=== PATIENT | male | born 1930 | race Caucasian/White ===

== ENCOUNTER 2017-10-12 16:18 | Emergency (ER) | payer MEDICARE, BC ==
--- NOTE | 2017-10-12 17:09 | RAD ---
INDICATION: Intracranial injury COMPARISON: CT brain August 29, 2016 TECHNIQUE: Noncontrast axial source images were acquired from the skull base to the vertex. FINDINGS: Ventricles/sulci: The ventricles and cisterns are normal in size and configuration for age. Brain parenchyma: There is no focal parenchymal finding, evidence of intracranial mass, or intracranial mass effect. Intracranial hemorrhage:None. Extra-axial spaces: There are no abnormal extra axial fluid collections or evidence of extra-axial mass. Calvarium: There is no calvarial fracture or other calvarial abnormality. Scalp: There is no evidence of scalp or extracalvarial soft tissue abnormality. Paranasal sinuses/mastoid: The paranasal sinuses and mastoid air cells are clear. Other: None. IMPRESSION: No acute intrarenal findings
[2017-10-12 17:26] VITALS: BP 126/78
--- NOTE | 2017-10-14 13:50 | ED ---
Ok Du Stephanie, scribed for Jaren Tobias MD on 10/12/17 at 1713 . Head Injury - HPI Summary HPI Summary: 1B: Dioni sanabria The pt is an 87 y/o M presenting to the ED with c/o a laceration on the back of his head s/p fall that occurred at 00:00 today. Pt reports that he is on Coumadin. The pt denies neck pain, WOODS, dizziness, and LOC. - History Of Current Complaint Chief Complaint: EDHeadInjury Stated Complaint: HEAD INJURY Time Seen by Provider: 10/12/17 17:04 Hx Obtained From: Patient, Family/Bulb Brander - Mechanism Of Injury: Fall From Height Of: - from sitting position on chair Onset/Duration: Started Hours Ago, Still Present Severity Currently: None Pain Intensity: 0 Pain Scale Used: 0-10 Numeric Location of Head Injury: Occipital - Allergies/Home Medications Allergies/Adverse Reactions: Allergies Allergy/AdvReac Type Severity Reaction Status Date / Time Penicillins Allergy Unknown Unknown Verified 08/29/16 13:12 Reaction Details Abciximab [From ReoPro] Allergy Unknown Verified 08/29/16 13:12 Reaction Details PMH/Surg Hx/FS Hx/Imm Hx Endocrine/Hematology History: Reports: Hx Anticoagulant Therapy - currently, Hx Diabetes, Other Endocrine/Hematological Disorders - Hx of blood clot in the groin Cardiovascular History: Reports: Hx Coronary Artery Disease, Hx Hypercholesterolemia, Hx Hypertension Denies: Hx Pacemaker/ICD Respiratory History: Denies: Hx Asthma, Hx Bronchopulmonary Dysplasia, Hx Chronic Bronchitis, Hx Chronic Obstructive Pulmonary Disease (COPD), Hx Cystic Fibrosis, Hx Lung Cancer , Hx Pleural Effusion, Hx Pneumonia, Hx Pulmonary Edema, Hx Pulmonary Embolism, Hx Seasonal Allergies, Hx Sleep Apnea, Other Respiratory Problems/Disorders GI History: Denies: Hx Cirrhosis, Hx Crohn's Disease, Hx Diverticulosis, Hx Gall Bladder Disease, Hx Gastroesophageal Reflux Disease, Hx Gastrointestinal Bleed, Hx Hiatal Hernia, Hx Irritable Bowel, Hx Jaundice, Hx Obstructive Bowel, Hx Ileostomy, Hx Pyloric Stenosis, Hx Ulcer, Hx Urosepsis, Other GI Disorders History: Reports: Other Problems/Disorders - prostate cancer Musculoskeletal History: Reports: Hx Arthritis - back Sensory History: Reports: Hx Contacts or Glasses, Hx Hearing Problem Denies: Hx Hearing Aid Opthamlomology History: Reports: Hx Contacts or Glasses Psychiatric History: Denies: Hx Panic Disorder - Cancer History Cancer Type, Location and Year: PROSTATE CANCER 20-25 YRS AGO Hx Radiation Therapy: Yes - radiation seed - Surgical History Surgery Procedure, Year, and Place: polypectomy of rectum, transurethal balloon dilation of prostatic urethra, left heart cath, angioplasty, triple bypass Hx Anesthesia Reactions: No Infectious Disease History: No Infectious Disease History: Reports: Hx Shingles - "possible" diagnosis per pt Denies: History Other Infectious Disease, Traveled Outside the [place] in Last 30 Days - Family History Known Family History: Positive: Other - NONCONTIRBUTORY Family History: No FHx of CVA. FHx of RA - Sister. FHx of CA - Father - Social History Occupation: Retired Lives: With Family Alcohol Use: None Substance Use Type: Reports: None Hx Tobacco Use: No Smoking Status (MU): Never Smoked Tobacco Have You Smoked in the Last Year: No Review of Systems Positive: Other - Negative: neck pain, dizziness, LOC. Negative: Fever, Chills Negative: Erythema Negative: Sore Throat Negative: Chest Pain Negative: Shortness Of Breath, Cough Negative: Abdominal Pain, Vomiting, Nausea Negative: dysuria, hematuria Negative: Myalgia, Edema Negative: Rash Positive: Headache All Other Systems Reviewed And Are Negative: Yes Physical Exam - Summary Physical Exam Summary: Constitutional: Well-developed, Well-nourished, Alert. (-) Distressed Skin: Warm, Dry HENT: 1 cm occipital scalp hematoma. no palpable tenderness or depression Eyes: Conjunctiva normal Neck: Musculoskeletal ROM normal neck. (-) JVD, (-) Stridor, (-) Tracheal deviation Cardio: Rhythm regular, rate normal, Heart sounds normal; Intact distal pulses; The pedal pulses are 2+ and symmetric. Radial pulses are 2+ and symmetric. (-) Murmur Pulmonary/Chest wall: Effort normal. (-) Respiratory distress, (-) Wheezes, (-) Rales Abd: Soft, (-) Tenderness, (-) Distension, (-) Guarding, (-) Rebound Musculoskeletal: (-) Edema Lymph: (-) Cervical adenopathy Neuro: Alert, Oriented x3 Psych: Mood and affect Normal Triage Information Reviewed: Yes Vital Signs On Initial Exam: Initial Vitals Temp Pulse Resp BP Pulse Ox 97.9 F 109 18 148/84 100 10/12/17 16:33 10/12/17 16:33 10/12/17 16:33 10/12/17 16:33 10/12/17 16:33 Vital Signs Reviewed: Yes Diagnostics - Vital Signs Vital Signs Temp Pulse Resp BP Pulse Ox 10/12/17 16:33 97.9 F 109 18 148/84 100 - Laboratory Lab Statement: Any lab studies that have been ordered have been reviewed, and results considered in the medical decision making process. - CT Brain CT Interpretation: No Acute Changes CT Interpretation Completed By: Radiologist - No acute intrarenal findings Head Injury Course/Dx Course Of Treatment: Pt was observed in ED for over 1 hr. He had no decline in neurologic status. - Diagnoses Provider Diagnoses: occipital scalp hematoma, Head trauma Discharge - Discharge Plan Condition: Stable Disposition: HOME Referrals: Frank Reynoso MD [Primary Care Provider] - Additional Instructions: Follow up with primary care physician in 2 days. RETURN TO THE EMERGENCY DEPARTMENT FOR CHANGING OR WORSENING SYMPTOMS The documentation as recorded by the Ok jimenez Stephanie accurately reflects the service I personally performed and the decisions made by Jatinder preston Jerry, MD.
== END 2017-10-12 17:25 | disposition home or self-care (01) ==
LOC: ED 16:18
DX: S00.03XA Contusion of scalp, initial encounter (principal); S09.90XA Unspecified injury of head, initial encounter; R51 Headache; W19.XXXA Unspecified fall, initial encounter; Y92.9 Unspecified place or not applicable; Z79.01 Long term (current) use of anticoagulants
CPT/HCPCS: 70450; 99282

== ENCOUNTER 2017-11-02 18:08 | Inpatient (IN) | payer MEDICARE, BC ==
--- NOTE | 2017-11-02 20:30 | RAD ---
INDICATION: Shortness of breath. COMPARISON: Comparison is made with prior study from August 16, 2014. Correlation is also made with a prior study from October 12, 2013. TECHNIQUE: Dual-energy PA and lateral views of the chest were obtained. FINDINGS: The patient appears to be status post coronary artery bypass surgery. The heart is within normal limits in size. There is elevation of the left hemidiaphragm which is unchanged. There is flattening of the diaphragms suggestive of chronic obstructive pulmonary disease. The lungs are grossly clear. There is blunting of the left costophrenic angle most consistent with a small pleural effusion. IMPRESSION: SMALL LEFT PLEURAL EFFUSION.
[2017-11-02] MEDS ORDERED: cefTRIAXone(*) 1 GM in NS 0.9% 50 ML* 50 ML IVPB ONE (20:50)
[2017-11-02] MEDS ORDERED: methylPREDNISolone 125 MG* 2 ML VIAL IV ONE (20:50)
[2017-11-02] MEDS ORDERED: Azithromycin TAB* 250 MG PO ONE (20:50)
[2017-11-02] MEDS ORDERED: Albuterol/Ipratropium NEB.SOL* Albuterol 2.5 MG/Ipratropium 0.5 MG 3 ML INH ONE (20:50)
[2017-11-02] MEDS ORDERED: Lidocaine 2% VISCOUS* 15 ML UDC PO ONE (20:50)
[2017-11-02] MEDS ORDERED: Al Hydrox/Mg Hydrox/Simet LIQ* 30 ML UDC PO ONE (20:50)
[2017-11-02 20:59] LABS: ABS Basophils 0 10^3/ul (0-0.2); ABS Eosinophils 0.3 10^3/ul (0-0.6); ABS Monocytes 0.9 10^3/ul (0-0.8); ABS Neutrophils 6.3 10^3/ul (1.5-7.7); ABS Nucleated RBC 0 10^3/ul; Eosinophil % 3.4 % (0-6); Hematocrit 39 % (42-52); Hemoglobin 12.5 g/dl (14.0-18.0); Lymphocyte % 11.9 % (25-47); Mean Corpuscular HGB Conc 32 g/dl (31-36); Mean Corpuscular Hemoglobin 31 pg (27-31); Mean Corpuscular Volume 97 fL (80-94); Mean Platelet Volume 8 um3 (7.4-10.4); Nucleated Red Blood Cells % 0.1; Platelet Count 143 10^3/ul (150-450); Red Blood Count 4.01 10^6/ul (4.0-5.4); Red Cell Distribution Width 16 % (10.5-15); White Blood Count 8.6 10^3/ul (3.5-10.8)
[2017-11-02 21:25] LABS: INR 2.81 (0.77-1.02)
[2017-11-02 21:35] LABS: EGFR Non-African American 40.3 (>60)
[2017-11-02] MEDS ORDERED: Acetaminophen TAB* 325 MG PO ONE (22:16)
[2017-11-02] MEDS ORDERED: Omeprazole CAP* 20 MG PO ONE (23:27)
[2017-11-03] MEDS ORDERED: Docusate CAP* 100 MG PO PRN (00:18)
[2017-11-03] MEDS ORDERED: Al Hydrox/Mg Hydrox/Simet LIQ* 30 ML UDC PO PRN (00:18)
[2017-11-03] MEDS ORDERED: Senna TAB PO PRN (00:18)
[2017-11-03] MEDS ORDERED: Ondansetron INJ* 2 MG/ML VIAL IV PRN (00:18)
[2017-11-03] MEDS ORDERED: Albuterol/Ipratropium NEB.SOL* Albuterol 2.5 MG/Ipratropium 0.5 MG 3 ML INH PRN (00:21)
[2017-11-03] MEDS ORDERED: Furosemide IV* 10 MG/ML 10 ML VIAL (100 MG) IV ONE (00:21)
[2017-11-03] MEDS ORDERED: Albuterol 2.5 MG/3 ML NEB.SOL* (0.083%) INH PRN (00:22)
[2017-11-03] MEDS ORDERED: HYDROcodone/ACETAMIN 5-325 MG* 1 TAB PO PRN (00:23)
[2017-11-03] MEDS ORDERED: Dextrose 50% Syringe 50 ML* 25 GM/50 ML SYRINGE IV PUSH PRN (00:25)
--- NOTE | 2017-11-03 02:55 | HP ---
CC: Frank Reynoso MD * HISTORY AND PHYSICAL: DATE OF ADMISSION: 11/03/17 TIME OF EVALUATION: 0000. PRIMARY CARE PHYSICIAN: Frank Reynoso MD. CHIEF COMPLAINT: Shortness of breath. HISTORY OF PRESENT ILLNESS: This is an 87-year-old male with a past medical history of reactive airway disease, coronary artery disease, who presents to the emergency room with worsening shortness of breath. The patient states yesterday around noon, he began developing runny nose with a nonstop dry cough. His coughing persisted and now today he has become more shortness of breath, worse with exertion. He called his primary care physician today. They called him a script for Tamiflu, but they were not able to see him. Because of the worsening shortness of breath, he came to the emergency room for further evaluation. When he got here, he had some pleuritic pain and full body aching. No orthopnea. No nausea, vomiting. No abdominal pain. No diarrhea. No fever. His had a viral illness about a week ago. He has an albuterol inhaler that he was prescribed a year ago after he had a virus. He did use that and showed some improvement in his coughing. He denies any lower extremity swelling. He has had gained about 10 pounds since August. He has never had a history of congestive heart failure. Otherwise, reaming review of systems is negative. We did a road test. He did not become hypoxic. He became very tachycardiac and tachypneic with increased work of breathing. Decision was made to bring him in for further evaluation and observation. In the emergency room, he was given 650 mg of Tylenol, DuoNeb, Zithromax, ceftriaxone, Solu-Medrol 125 and Prilosec and was referred to the hospitalist service for further evaluation. PAST MEDICAL HISTORY: 1. Macular degeneration. 2. History of DVT with hypercoagulable history, on long-term anticoagulation. 3. CKD stage 3. 4. CAD status post bypass and PCI. 5. Chronic back pain. 6. Spinal stenosis. 7. History of reactive airway disease. 8. Diabetes. 9. Hyperlipidemia. 10. History of nephrolithiasis. 11. Hypertension. 12. History of prostate cancer status post TURP. 13. History of colon polyp. 14. GERD. MEDICATIONS: 1. Albuterol inhaler 2 puffs every 4 hours as needed for wheezing. 2. Allopurinol 300 mg p.o. daily. 3. Atorvastatin 40 mg p.o. daily. 4. Citalopram 10 mg p.o. daily. 5. Lasix 20 mg p.o. every other day. 6. Glipizide 5 mg p.o. daily. 7. [place] 1 tab every 4 hours as needed for pain. 8. Metoprolol succinate 50 mg p.o. daily. 9. Nitroglycerin sublingual as directed. 10. Ramipril 10 mg p.o. b.i.d. 11. Ranitidine 300 mg p.o. at bedtime. 12. Coumadin 2.5 mg Wednesday, Wednesday, , Wednesday and 5 mg Wednesday, Wednesday, Wednesday. ALLERGIES: PENICILLIN, REPRO. FAMILY HISTORY: Reviewed and noncontributory. SOCIAL HISTORY: The patient lives at home with his who is his healthcare proxy. He is independent of ADLs and still driving. No history of smoking, alcohol, or illicit drug use. He likes to buy cars. CODE STATUS: Discussed this with him and he would like to be a DNR/DNI and MOLST form will be completed. REVIEW OF SYSTEMS: A 14-point review of systems as mentioned in the HPI, otherwise negative. PHYSICAL EXAMINATION GENERAL: No acute distress, resting comfortably with his at the bedside. VITAL SIGNS: Temp 98.5, pulse rate 102, respiratory rate 26, oxygen saturation 96% on room air, and blood pressure 120/60. HEENT: Head: Normocephalic. Pupils are equal and reactive. Oropharynx: Mucous membranes moist and posterior erythema in the oropharynx. NECK: Supple. No nuchal rigidity or adenopathy. RESPIRATORY: Rhonchorous bilateral breath sounds with bilateral crackles at the bases and expiratory wheezing. CARDIAC: Tachycardiac. Soft systolic murmur heard throughout. ABDOMEN: Soft, nontender, nondistended. EXTREMITIES: Trace pretibial edema. +1 DPs. NEUROLOGIC: Alert, awake, and oriented x3. No focal neurologic deficits. He was noted to have resting tremor. LABORATORY DATA: White count 8.6, hemoglobin 12.5, hematocrit 39, platelets 143. INR was 2.81. Sodium 139, potassium 4.4, chloride 106, bicarb 26, BUN 37, creatinine 1.62, glucose 116. Troponin 0.03. BNP is 607. Influenza is negative. RADIOGRAPHIC DATA: Chest x-ray: Small left pleural effusion. EKG shows normal sinus rhythm with PVCs. ASSESSMENT: This is an 87-year-old male with a past medical history of reactive airway disease and coronary artery disease, presents to the emergency room with acute onset on worsening shortness of breath and dyspnea on exertion. 1. Shortness of breath, dyspnea on exertion. Assessment: History and physical are most consistent with a viral syndrome and exacerbation of his reactive airway disease. He also has an elevated BNP and has crackles on exam and could have a component of some mild congestive heart failure. He had an echocardiogram done several years ago that showed an ejection fraction of 40% to 45% with diagnostic dysfunction. Plan: We will admit him for observation. We will give him the dose of Lasix 40 mg IV now. We will hold off on further antibiotics as this appears viral in nature. We will check a procalcitonin to confirm this. Continue breathing treatments with DuoNeb and albuterol. We will also continue him on prednisone at 40 and resume his remaining home medications as prescribed. 2. Chronic medical problems: Diabetes. We will hold his oral agents and start him on lispro sliding scale. 3. Gastroesophageal reflux disease. We do not have ranitidine on the formulary , we will place him on omeprazole. 4. DVT. Continue him on Coumadin. He is therapeutic. He scores high risk 5. Coronary artery disease, hypertension. Continue his cardiac medications. He may need additional Lasix depending on his response. 6. FEN. Place him on heart healthy low-sodium diet. 8. Code status. The patient confirms he is a DNR/DNI. We will fill out the MOLST form. PATIENT TIME: Greater than 60 minutes spent doing the history and physical, more than half the time spent in direct patient contact. [id number]/[facility] #: [id number] PILAR
--- NOTE | 2017-11-03 04:41 | ED ---
Lilia Du Thomas, scribed for Marc Colbert on 11/02/17 at 205 . Shortness of Breath - HPI Summary HPI Summary: The patient is an 87 year old male presenting to the emergency department complaining of shortness of breath and a cough for the last day. The patient denies edema and fever. - History of Current Complaint Chief Complaint: EDShortnessOfBreath Time Seen by Provider: 11/02/17 20:39 Hx Obtained From: Patient Onset/Duration: Lasting Days - 1, Still Present Timing: Constant Current Severity: Moderate Dyspnea At: Rest Aggrevating Factors: Other - Exertion Alleviating Factors: Nothing Associated Signs & Symptoms: Cough (Nonproductive) - Allergy/Home Medications Allergies/Adverse Reactions: Allergies Allergy/AdvReac Type Severity Reaction Status Date / Time MS Penicillins [Penicillins] Allergy Unknown Unknown Verified 08/29/16 13:12 Reaction Details MS Abciximab [From ReoPro] Allergy Unknown Verified 08/29/16 13:12 Reaction Details Home Medications: Home Medications Albuterol HFA INHALER* [Ventolin HFA Inhaler*] 2 puff INH Q4H PRN 11/02/17 [ History Confirmed 11/02/17] Allopurinol TAB* [Zyloprim 300 MG TAB*] 300 mg PO DAILY 11/02/17 [History Confirmed 11/02/17] Aspirin EC Low Dose* [Ecotrin EC Low Dose 81 MG*] 81 mg PO DAILY 11/02/17 [ History Confirmed 11/02/17] Atorvastatin* [Lipitor*] 40 mg PO DAILY 11/02/17 [History Confirmed 11/02/17] Citalopram TAB* [CeleXA TAB*] 10 mg PO DAILY 11/02/17 [History Confirmed ] Furosemide TAB* [Lasix TAB*] 20 mg PO EVERY OTHER DAY 11/02/17 [History Confirmed 11/02/17] HYDROcodone/ACETAMIN 5-325 MG* [[place] 5-325 TAB*] 1 tab PO Q4H PRN MDD 4 tablets 11/02/17 [History Confirmed 11/02/17] Metoprolol Succinate XL TAB* [Toprol XL TAB*] 50 mg PO DAILY 11/02/17 [History Confirmed 11/02/17] Nitroglycerin TAB 0.4 MG* 0.4 mg SL Q5M PRN 11/02/17 [History Confirmed 11/02/17 ] Ramipril CAP* [Altace CAP*] 10 mg PO BID 11/02/17 [History Confirmed 11/02/17] Ranitidine TAB (NF) [Zantac TAB (NF)] 300 mg PO BEDTIME 11/02/17 [History Confirmed 11/02/17] Warfarin TAB(*) [Coumadin TAB(*)] 2.5 mg PO SUTUTHSA 11/02/17 [History Confirmed 11/02/17] Warfarin TAB(*) [Coumadin TAB(*)] 5 mg PO MOWEFR 11/02/17 [History Confirmed ] glipiZIDE TAB.XL* [Glucotrol XL*] 5 mg PO DAILY 11/02/17 [History Confirmed ] PMH/Surg Hx/FS Hx/Imm Hx Endocrine/Hematology History: Reports: Hx Anticoagulant Therapy - currently, Hx Diabetes, Other Endocrine/Hematological Disorders - Hx of blood clot in the groin Cardiovascular History: Reports: Hx Coronary Artery Disease, Hx Hypercholesterolemia, Hx Hypertension Denies: Hx Pacemaker/ICD Respiratory History: Denies: Hx Asthma, Hx Bronchopulmonary Dysplasia, Hx Chronic Bronchitis, Hx Chronic Obstructive Pulmonary Disease (COPD), Hx Cystic Fibrosis, Hx Lung Cancer , Hx Pleural Effusion, Hx Pneumonia, Hx Pulmonary Edema, Hx Pulmonary Embolism, Hx Seasonal Allergies, Hx Sleep Apnea, Other Respiratory Problems/Disorders GI History: Denies: Hx Cirrhosis, Hx Crohn's Disease, Hx Diverticulosis, Hx Gall Bladder Disease, Hx Gastroesophageal Reflux Disease, Hx Gastrointestinal Bleed, Hx Hiatal Hernia, Hx Irritable Bowel, Hx Jaundice, Hx Obstructive Bowel, Hx Ileostomy, Hx Pyloric Stenosis, Hx Ulcer, Hx Urosepsis, Other GI Disorders History: Reports: Other Problems/Disorders - prostate cancer Musculoskeletal History: Reports: Hx Arthritis - back Sensory History: Reports: Hx Contacts or Glasses, Hx Hearing Problem Denies: Hx Hearing Aid Opthamlomology History: Reports: Hx Contacts or Glasses Psychiatric History: Denies: Hx Panic Disorder - Cancer History Cancer Type, Location and Year: PROSTATE CANCER 20-25 YRS AGO Hx Radiation Therapy: Yes - radiation seed - Surgical History Surgery Procedure, Year, and Place: polypectomy of rectum, transurethal balloon dilation of prostatic urethra, left heart cath, angioplasty, triple bypass Hx Anesthesia Reactions: No - Immunization History Date of Tetanus Vaccine: UTD Date of Influenza Vaccine: UTD Infectious Disease History: No Infectious Disease History: Reports: Hx Shingles - "possible" diagnosis per pt Denies: History Other Infectious Disease, Traveled Outside the [place] in Last 30 Days - Family History Known Family History: Positive: Other - NONCONTIRBUTORY Family History: No FHx of CVA. FHx of RA - Sister. FHx of CA - Father - Social History Alcohol Use: None Substance Use Type: Reports: None Hx Tobacco Use: No Smoking Status (MU): Never Smoked Tobacco Have You Smoked in the Last Year: No Review of Systems Negative: Fever Positive: Shortness Of Breath, Cough Negative: Edema All Other Systems Reviewed And Are Negative: Yes Physical Exam - Summary Physical Exam Summary: Appearance: Well appearing, no pain distress Skin: warm, dry, reflects adequate perfusion Head/face: normal Eyes: EOMI, ELIZA ENT: normal Neck: supple, non-tender Respiratory: He has a wheeze on the right side. Cardiovascular: RRR, pulses symmetrical Abdomen: non-tender, soft Bowel: present Musculoskeletal: normal, strength/ROM intact Neuro: normal, sensory motor intact, A&Ox3 Triage Information Reviewed: Yes Vital Signs On Initial Exam: Initial Vitals Temp Pulse Resp BP Pulse Ox 98.5 F 83 26 166/98 96 11/02/17 18:11 11/02/17 18:11 11/02/17 18:11 11/02/17 18:11 11/02/17 18:11 Vital Signs Reviewed: Yes Diagnostics - Vital Signs Vital Signs Temp Pulse Resp BP Pulse Ox 11/02/17 19:21 98.8 F 73 24 132/55 96 11/02/17 18:11 98.5 F 83 26 166/98 96 - Laboratory Lab Results: Lab Results 11/02/17 11/02/17 11/02/17 Range/Units 20:49 20:49 20:49 WBC 8.6 (3.5-10.8) 10^3/ul RBC 4.01 (4.0-5.4) 10^6/ul Hgb 12.5 L (14.0-18.0) g/dl Hct 39 L (42-52) % MCV 97 H (80-94) fL MCH 31 (27-31) pg MCHC 32 (31-36) g/dl RDW 16 H (10.5-15) % Plt Count 143 L (150-450) 10^3/ul MPV 8 (7.4-10.4) um3 Neut % (Auto) 73.6 (38-83) % Lymph % (Auto) 11.9 L (25-47) % [place] % (Auto) 10.7 H (1-9) % Eos % (Auto) 3.4 (0-6) % Baso % (Auto) 0.4 (0-2) % Absolute Neuts (auto) 6.3 (1.5-7.7) 10^3/ul Absolute Lymphs (auto) 1.0 (1.0-4.8) 10^3/ul Absolute Monos (auto) 0.9 H (0-0.8) 10^3/ul Absolute Eos (auto) 0.3 (0-0.6) 10^3/ul Absolute Basos (auto) 0 (0-0.2) 10^3/ul Absolute Nucleated RBC 0 10^3/ul Nucleated RBC % 0.1 INR (Anticoag Therapy) (0.77-1.02) APTT (26.0-36.3) seconds Sodium 139 (133-145) mmol/L Potassium 4.4 (3.5-5.0) mmol/L Chloride 106 (101-111) mmol/L Carbon Dioxide 26 (22-32) mmol/L Anion Gap 7 (2-11) mmol/L BUN 37 H (6-24) mg/dL Creatinine 1.62 H (0.67-1.17) mg/dL Est GFR ( Amer) 51.9 (>60) Est GFR (Non-Af Amer) 40.3 (>60) BUN/Creatinine Ratio 22.8 H (8-20) Glucose 116 H (70-100) mg/dL Lactic Acid 1.0 (0.5-2.0) mmol/L Calcium 9.2 (8.6-10.3) mg/dL Total Bilirubin 0.60 (0.2-1.0) mg/dL AST 24 (13-39) U/L ALT 17 (7-52) U/L Alkaline Phosphatase 116 H (34-104) U/L Troponin I 0.03 (<0.04) ng/mL B-Natriuretic Peptide ( - 100) pg/mL Total Protein 7.0 (6.4-8.9) g/dL Albumin 3.8 (3.2-5.2) g/dL Globulin 3.2 (2-4) g/dL Albumin/Globulin Ratio 1.2 (1-3) Procalcitonin (<0.6) ng/mL Influenza A (Rapid) (Negative) Influenza B (Rapid) (Negative) 11/02/17 11/02/17 11/02/17 Range/Units 20:49 20:49 20:49 WBC (3.5-10.8) 10^3/ul RBC (4.0-5.4) 10^6/ul Hgb (14.0-18.0) g/dl Hct (42-52) % MCV (80-94) fL MCH (27-31) pg MCHC (31-36) g/dl RDW (10.5-15) % Plt Count (150-450) 10^3/ul MPV (7.4-10.4) um3 Neut % (Auto) (38-83) % Lymph % (Auto) (25-47) % [place] % (Auto) (1-9) % Eos % (Auto) (0-6) % Baso % (Auto) (0-2) % Absolute Neuts (auto) (1.5-7.7) 10^3/ul Absolute Lymphs (auto) (1.0-4.8) 10^3/ul Absolute Monos (auto) (0-0.8) 10^3/ul Absolute Eos (auto) (0-0.6) 10^3/ul Absolute Basos (auto) (0-0.2) 10^3/ul Absolute Nucleated RBC 10^3/ul Nucleated RBC % INR (Anticoag Therapy) 2.81 H (0.77-1.02) APTT 43.3 H (26.0-36.3) seconds Sodium (133-145) mmol/L Potassium (3.5-5.0) mmol/L Chloride (101-111) mmol/L Carbon Dioxide (22-32) mmol/L Anion Gap (2-11) mmol/L BUN (6-24) mg/dL Creatinine (0.67-1.17) mg/dL Est GFR ( Amer) (>60) Est GFR (Non-Af Amer) (>60) BUN/Creatinine Ratio (8-20) Glucose (70-100) mg/dL Lactic Acid (0.5-2.0) mmol/L Calcium (8.6-10.3) mg/dL Total Bilirubin (0.2-1.0) mg/dL AST (13-39) U/L ALT (7-52) U/L Alkaline Phosphatase (34-104) U/L Troponin I (<0.04) ng/mL B-Natriuretic Peptide 607 H ( - 100) pg/mL Total Protein (6.4-8.9) g/dL Albumin (3.2-5.2) g/dL Globulin (2-4) g/dL Albumin/Globulin Ratio (1-3) Procalcitonin < 0.1 (<0.6) ng/mL Influenza A (Rapid) (Negative) Influenza B (Rapid) (Negative) 11/02/17 Range/Units 22:46 WBC (3.5-10.8) 10^3/ul RBC (4.0-5.4) 10^6/ul Hgb (14.0-18.0) g/dl Hct (42-52) % MCV (80-94) fL MCH (27-31) pg MCHC (31-36) g/dl RDW (10.5-15) % Plt Count (150-450) 10^3/ul MPV (7.4-10.4) um3 Neut % (Auto) (38-83) % Lymph % (Auto) (25-47) % [place] % (Auto) (1-9) % Eos % (Auto) (0-6) % Baso % (Auto) (0-2) % Absolute Neuts (auto) (1.5-7.7) 10^3/ul Absolute Lymphs (auto) (1.0-4.8) 10^3/ul Absolute Monos (auto) (0-0.8) 10^3/ul Absolute Eos (auto) (0-0.6) 10^3/ul Absolute Basos (auto) (0-0.2) 10^3/ul Absolute Nucleated RBC 10^3/ul Nucleated RBC % INR (Anticoag Therapy) (0.77-1.02) APTT (26.0-36.3) seconds Sodium (133-145) mmol/L Potassium (3.5-5.0) mmol/L Chloride (101-111) mmol/L Carbon Dioxide (22-32) mmol/L Anion Gap (2-11) mmol/L BUN (6-24) mg/dL Creatinine (0.67-1.17) mg/dL Est GFR ( Amer) (>60) Est GFR (Non-Af Amer) (>60) BUN/Creatinine Ratio (8-20) Glucose (70-100) mg/dL Lactic Acid (0.5-2.0) mmol/L Calcium (8.6-10.3) mg/dL Total Bilirubin (0.2-1.0) mg/dL AST (13-39) U/L ALT (7-52) U/L Alkaline Phosphatase (34-104) U/L Troponin I (<0.04) ng/mL B-Natriuretic Peptide ( - 100) pg/mL Total Protein (6.4-8.9) g/dL Albumin (3.2-5.2) g/dL Globulin (2-4) g/dL Albumin/Globulin Ratio (1-3) Procalcitonin (<0.6) ng/mL Influenza A (Rapid) Negative (Negative) Influenza B (Rapid) Negative (Negative) Result Diagrams: 11/02/17 20:49 11/02/17 20:49 Lab Statement: Any lab studies that have been ordered have been reviewed, and results considered in the medical decision making process. - Radiology CXR Xray Interpretation: Positive (See Comments) - Small left pleural effusion. Dr. Colbert has reviewed this report. Radiology Interpretation Completed By: Radiologist - EKG 20:08 Cardiac Rate: NL EKG Rhythm: Sinus Rhythm - at 74 BPM EKG Interpretation: Multiple PVCs Re-Evaluation - Re-Evaluation First Eval Re-Evaluation Time: 22:39 Change: Unchanged Comment: The patient is still short of breath. Course/Dx - Course Assessment/Plan: The patient is an 87 year old male presenting to the emergency department complaining of shortness of breath and a cough for the last day. Bloodwork was obtained. CXR shows small left pleural effusion. EKG shows sinus rhythm with multiple PVCs. The patient is diagnosed with COPD exacerbation and pneumonia. Dr. Key admits the patient. - Diagnoses Differential Diagnosis/HQI/PQRI: Positive: Bronchitis, CHF, COPD Exacerbation, Pneumonia, Pulmonary Edema Provider Diagnoses: COPD exacerbation, Pneumonia - Physician Notifications Discussed Care of Patient With: Flora Key Time Discussed With Above Provider: 00:53 Instructed by Provider To: Admit As Inpatient - Critical Care Time Critical Care Time: 30-74 min Discharge - Discharge Plan Condition: Fair Disposition: ADMITTED TO [facility] documentation as recorded by the Lilia jimenez Thomas accurately reflects the service I personally performed and the decisions made by Filemon preston Emmanuel.
[2017-11-03] MEDS: Omeprazole CAP* 20 MG PO SCH (05:55)
[2017-11-03 07:23] LABS: EGFR Non-African American 34.8 (>60); INR 3.24 (0.77-1.02)
[2017-11-03] MEDS ORDERED: Furosemide TAB* 20 MG PO SCH (09:00)
[2017-11-03] MEDS ORDERED: predniSONE TAB* 20 MG PO SCH (09:00)
[2017-11-03] MEDS: Insulin LISPRO* 1 UNITS UNIT SUBCUT SCH ×3 (09:35→18:28)
[2017-11-03] MEDS ORDERED: Perflutren Lipid Microsphere* 3 ML VIAL ONE (09:39)
[2017-11-03] MEDS: guaiFENesin ER TAB 600 MG PO SCH ×2 (10:03→21:43)
[2017-11-03] MEDS: Metoprolol Succinate XL TAB* 50 MG PO SCH (10:04)
[2017-11-03] MEDS: Aspirin EC Low Dose* 81 MG TAB.EC PO SCH (10:04)
[2017-11-03] MEDS: Allopurinol TAB* 300 MG PO SCH (10:05)
[2017-11-03] MEDS: Citalopram TAB* 10 MG PO SCH (10:05)
[2017-11-03] MEDS: Ramipril CAP* 10 MG PO SCH ×2 (10:05→21:43)
[2017-11-03] MEDS: Atorvastatin* 40 MG TAB PO SCH (10:06)
--- NOTE | 2017-11-03 10:46 | PN ---
Subjective Date of Service: 11/03/17 Interval History: Pt feels better, started wheezing once he ambulated today.C/o dry cough Objective Active Medications: Hydrocodone Bitart/Acetaminophen ([place] 5-325 Tab*) 1 tab PO Q4H PRN PRN Reason: PAIN - BACK Al Hydrox/Mg Hydrox/Simethicone (Maalox Plus*) 30 ml PO Q6H PRN PRN Reason: INDIGESTION Albuterol (Ventolin 2.5 Mg/3 Ml Neb.[place]*) 2.5 mg INH Q2H PRN PRN Reason: SOB/WHEEZING Albuterol/Ipratropium (Duoneb (Albuterol 2.5 Mg/Ipratropium 0.5 Mg)) 1 neb INH Q4H PRN PRN Reason: SOB/WHEEZING Allopurinol (Zyloprim Tab*) 300 mg PO DAILY [facility] Last Admin: 11/03/17 10:05 Dose: 300 mg Aspirin (Aspirin Ec Low Dose*) 81 mg PO DAILY [facility] Last Admin: 11/03/17 10:04 Dose: 81 mg Atorvastatin Calcium (Lipitor*) 40 mg PO DAILY [facility] Last Admin: 11/03/17 10:06 Dose: 40 mg Citalopram Hydrobromide (Celexa Tab*) 10 mg PO DAILY [facility] Last Admin: 11/03/17 10:05 Dose: 10 mg Dextrose (D50w Syringe 50 Ml*) 12.5 gm IV PUSH .FOR FS < 60 - SS PRN PRN Reason: FS < 60 Docusate Sodium (Colace Cap*) 100 mg PO BID PRN PRN Reason: CONSTIPATION Furosemide (Lasix Tab*) 20 mg PO EVERY OTHER DAY [facility] Last Admin: 11/03/17 10:03 Dose: 20 mg Glipizide (Glucotrol Xl*) 5 mg PO DAILY [facility] Guaifenesin (Mucinex*) 600 mg PO BID [facility] Last Admin: 11/03/17 10:03 Dose: 600 mg Insulin Human Lispro (Humalog*) 0 units SUBCUT AC [facility] PRN Reason: Protocol Last Admin: 11/03/17 09:35 Dose: 3 units Metoprolol Succinate (Toprol Xl Tab*) 50 mg PO DAILY [facility] Last Admin: 11/03/17 10:04 Dose: 50 mg Omeprazole (Prilosec Cap*) 20 mg PO 0600 [facility] Last Admin: 11/03/17 05:55 Dose: 20 mg Ondansetron HCl (Zofran Inj*) 4 mg IV Q4H PRN PRN Reason: NAUSEA/VOMITING Prednisone (Deltasone Tab*) 40 mg PO DAILY [facility] Last Admin: 11/03/17 10:04 Dose: 40 mg Ramipril (Altace Cap*) 10 mg PO BID [facility] Last Admin: 11/03/17 10:05 Dose: 10 mg Senna (Senokot Tab*) 1 tab PO BID PRN PRN Reason: CONSTIPATION Vital Signs - 8 hr 11/03/17 11/03/17 11/03/17 03:10 07:21 08:34 Temperature 97.8 F 98.2 F Pulse Rate 95 95 96 Respiratory 16 16 16 Rate Blood Pressure 117/57 132/72 (mmHg) O2 Sat by Pulse 96 97 97 Oximetry Oxygen Devices in Use Now: None Appearance: 87 yo M in NAD, aAOx3 Eyes: No Scleral Icterus, PERRLA Ears/Nose/Mouth/Throat: NL Teeth, Lips, Gums, Mucous Membranes Moist Neck: NL Appearance and Movements; NL JVP, Trachea Midline Respiratory: Symmetrical Chest Expansion and Respiratory Effort, - - diffuse wheezing on ascultation ob b/l lungs and neck Cardiovascular: NL Sounds; No Murmurs; No JVD, RRR Abdominal: NL Sounds; No Tenderness; No Distention, No Hepatosplenomegaly Lymphatic: No Cervical Adenopathy Extremities: No Clubbing, Cyanosis, - - +1 pitting edema b/l Skin: No Rash or Ulcers, No Nodules or Sclerosis Neurological: Alert and Oriented x 3, NL Muscle Strength and Tone Result Diagrams: 11/02/17 20:49 11/03/17 06:33 Additional Lab and Data: Lab Results 11/02/17 11/02/17 11/02/17 Range/Units 20:49 20:49 20:49 WBC 8.6 (3.5-10.8) 10^3/ul RBC 4.01 (4.0-5.4) 10^6/ul Hgb 12.5 L (14.0-18.0) g/dl Hct 39 L (42-52) % MCV 97 H (80-94) fL MCH 31 (27-31) pg MCHC 32 (31-36) g/dl RDW 16 H (10.5-15) % Plt Count 143 L (150-450) 10^3/ul MPV 8 (7.4-10.4) um3 Neut % (Auto) 73.6 (38-83) % Lymph % (Auto) 11.9 L (25-47) % [place] % (Auto) 10.7 H (1-9) % Eos % (Auto) 3.4 (0-6) % Baso % (Auto) 0.4 (0-2) % Absolute Neuts (auto) 6.3 (1.5-7.7) 10^3/ul Absolute Lymphs (auto) 1.0 (1.0-4.8) 10^3/ul Absolute Monos (auto) 0.9 H (0-0.8) 10^3/ul Absolute Eos (auto) 0.3 (0-0.6) 10^3/ul Absolute Basos (auto) 0 (0-0.2) 10^3/ul Absolute Nucleated RBC 0 10^3/ul Nucleated RBC % 0.1 INR (Anticoag Therapy) (0.77-1.02) APTT (26.0-36.3) seconds Sodium 139 (133-145) mmol/L Potassium 4.4 (3.5-5.0) mmol/L Chloride 106 (101-111) mmol/L Carbon Dioxide 26 (22-32) mmol/L Anion Gap 7 (2-11) mmol/L BUN 37 H (6-24) mg/dL Creatinine 1.62 H (0.67-1.17) mg/dL Est GFR ( Amer) 51.9 (>60) Est GFR (Non-Af Amer) 40.3 (>60) BUN/Creatinine Ratio 22.8 H (8-20) Glucose 116 H (70-100) mg/dL Lactic Acid 1.0 (0.5-2.0) mmol/L Calcium 9.2 (8.6-10.3) mg/dL Total Bilirubin 0.60 (0.2-1.0) mg/dL AST 24 (13-39) U/L ALT 17 (7-52) U/L Alkaline Phosphatase 116 H (34-104) U/L Troponin I 0.03 (<0.04) ng/mL B-Natriuretic Peptide ( - 100) pg/mL Total Protein 7.0 (6.4-8.9) g/dL Albumin 3.8 (3.2-5.2) g/dL Globulin 3.2 (2-4) g/dL Albumin/Globulin Ratio 1.2 (1-3) Procalcitonin (<0.6) ng/mL Influenza A (Rapid) (Negative) Influenza B (Rapid) (Negative) 11/02/17 11/02/17 11/02/17 Range/Units 20:49 20:49 20:49 WBC (3.5-10.8) 10^3/ul RBC (4.0-5.4) 10^6/ul Hgb (14.0-18.0) g/dl Hct (42-52) % MCV (80-94) fL MCH (27-31) pg MCHC (31-36) g/dl RDW (10.5-15) % Plt Count (150-450) 10^3/ul MPV (7.4-10.4) um3 Neut % (Auto) (38-83) % Lymph % (Auto) (25-47) % [place] % (Auto) (1-9) % Eos % (Auto) (0-6) % Baso % (Auto) (0-2) % Absolute Neuts (auto) (1.5-7.7) 10^3/ul Absolute Lymphs (auto) (1.0-4.8) 10^3/ul Absolute Monos (auto) (0-0.8) 10^3/ul Absolute Eos (auto) (0-0.6) 10^3/ul Absolute Basos (auto) (0-0.2) 10^3/ul Absolute Nucleated RBC 10^3/ul Nucleated RBC % INR (Anticoag Therapy) 2.81 H (0.77-1.02) APTT 43.3 H (26.0-36.3) seconds Sodium (133-145) mmol/L Potassium (3.5-5.0) mmol/L Chloride (101-111) mmol/L Carbon Dioxide (22-32) mmol/L Anion Gap (2-11) mmol/L BUN (6-24) mg/dL Creatinine (0.67-1.17) mg/dL Est GFR ( Amer) (>60) Est GFR (Non-Af Amer) (>60) BUN/Creatinine Ratio (8-20) Glucose (70-100) mg/dL Lactic Acid (0.5-2.0) mmol/L Calcium (8.6-10.3) mg/dL Total Bilirubin (0.2-1.0) mg/dL AST (13-39) U/L ALT (7-52) U/L Alkaline Phosphatase (34-104) U/L Troponin I (<0.04) ng/mL B-Natriuretic Peptide 607 H ( - 100) pg/mL Total Protein (6.4-8.9) g/dL Albumin (3.2-5.2) g/dL Globulin (2-4) g/dL Albumin/Globulin Ratio (1-3) Procalcitonin < 0.1 (<0.6) ng/mL Influenza A (Rapid) (Negative) Influenza B (Rapid) (Negative) 11/02/17 Range/Units 22:46 WBC (3.5-10.8) 10^3/ul RBC (4.0-5.4) 10^6/ul Hgb (14.0-18.0) g/dl Hct (42-52) % MCV (80-94) fL MCH (27-31) pg MCHC (31-36) g/dl RDW (10.5-15) % Plt Count (150-450) 10^3/ul MPV (7.4-10.4) um3 Neut % (Auto) (38-83) % Lymph % (Auto) (25-47) % [place] % (Auto) (1-9) % Eos % (Auto) (0-6) % Baso % (Auto) (0-2) % Absolute Neuts (auto) (1.5-7.7) 10^3/ul Absolute Lymphs (auto) (1.0-4.8) 10^3/ul Absolute Monos (auto) (0-0.8) 10^3/ul Absolute Eos (auto) (0-0.6) 10^3/ul Absolute Basos (auto) (0-0.2) 10^3/ul Absolute Nucleated RBC 10^3/ul Nucleated RBC % INR (Anticoag Therapy) (0.77-1.02) APTT (26.0-36.3) seconds Sodium (133-145) mmol/L Potassium (3.5-5.0) mmol/L Chloride (101-111) mmol/L Carbon Dioxide (22-32) mmol/L Anion Gap (2-11) mmol/L BUN (6-24) mg/dL Creatinine (0.67-1.17) mg/dL Est GFR ( Amer) (>60) Est GFR (Non-Af Amer) (>60) BUN/Creatinine Ratio (8-20) Glucose (70-100) mg/dL Lactic Acid (0.5-2.0) mmol/L Calcium (8.6-10.3) mg/dL Total Bilirubin (0.2-1.0) mg/dL AST (13-39) U/L ALT (7-52) U/L Alkaline Phosphatase (34-104) U/L Troponin I (<0.04) ng/mL B-Natriuretic Peptide ( - 100) pg/mL Total Protein (6.4-8.9) g/dL Albumin (3.2-5.2) g/dL Globulin (2-4) g/dL Albumin/Globulin Ratio (1-3) Procalcitonin (<0.6) ng/mL Influenza A (Rapid) Negative (Negative) Influenza B (Rapid) Negative (Negative) Assess/Plan/Problems-Billing Assessment: 87 yo m with h/o CKD3, DVT on Coumadin, DM, CABG presents with viral syndrome and CHF - Patient Problems (1) Bronchitis Comment: acute, with bronchospasm. cont Prednisone [facility]rt [facility] (2) Acute on chronic diastolic CHF (congestive heart failure) Comment: will change Lasix from QOD to daily cont daily weights Exacerbated by bronchitis (3) CKD (chronic kidney disease) stage 3, GFR 30-59 ml/min Comment: due to DM2 Creat at baseline (4) Diabetes Comment: uncontrolled due to steroid use cont ISS Restarting glipizide (5) DVT prophylaxis Comment: INR>3, holding coumadin Status and Disposition: OBV
[2017-11-03] MEDS: Furosemide TAB* 20 MG PO SCH (10:57)
[2017-11-03] MEDS ORDERED: glipiZIDE TAB.XL* 5 MG PO SCH (11:00)
[2017-11-03] MEDS: Azithromycin IV(*) 500 MG in NS 0.9% 250 ML* 250 ML IVPB SCH (11:15)
--- NOTE | 2017-11-03 11:15 | ECHO ---
Patient: SHRUTHI RUEDA [facility] Rec#: [id number] : 1930 Date: 11/03/2017 Age: 87y Height: 162.56 cm / 64.0 in Weight: 76.2 kg / 167.9 lbs Sex: M BSA: 1.82 Room#: [facility] Admit Date#: 11/03/2017 Type: Inpatient Referring: Flora Key Reading: Karen Zapata MD Cloud Systems Architect: Mary Lozano RDCS CC: Frank Reynoso MD CC: Nic Hill Transthoracic Echocardiogram Indication: Congestive heart failure BP: 128/70 HR: 101 Rhythm: A-Fib Findings History: CAD s/p PCI and CABG, HTN, DM, CKD III, HLD, prostate cancer, soft murmur. Technical Comments: The study is technically difficult. The study is technically limited due to poor acoustic windows. Completed at 1030. Left Ventricle: The left ventricular chamber size is normal. Mild concentric left ventricular hypertrophy is observed. There is a focal wall motion abnormality present.basilar 2/3 of the inferior wall relatively hypokinetic, extends in to the posterior wall. Base of the septum relatively hypokinetic. Left ventricular systolic function is at the lower limits of normal. The estimated ejection fraction is 50-55%. The assessment of diastolic function is non-diagnostic. Left Atrium: The left atrium is mildly dilated. Right Ventricle: The right ventricular cavity size is normal. The right ventricular global systolic function is normal. Right Atrium: The right atrium is mildly dilated. Aortic Valve: The aortic valve is trileaflet. The aortic valve leaflets are mildly thickened. There is evidence of aortic sclerosis without stenosis. There is a trace of aortic regurgitation. There is no evidence of aortic stenosis. Mitral Valve: There is mitral annular calcification. The mitral valve leaflets are mildly thickened. There is mild to moderate mitral regurgitation. There is no evidence of mitral stenosis. Tricuspid Valve: The tricuspid valve leaflets are normal. There is mild tricuspid regurgitation. The right ventricular systolic pressure is estimated at 42 mmHg. There is evidence of mild pulmonary hypertension. There is no tricuspid stenosis. Pulmonic Valve: The pulmonic valve appears normal. There is mild pulmonic regurgitation. There is no pulmonic stenosis. Pericardium: There is no significant pericardial effusion. A pericardial fat pad is visualized. Aorta: There is no dilatation of the ascending aorta. There is no dilatation of the aortic arch. The aortic root is normal in size. Pulmonary Artery: The main pulmonary artery is not well visualized. Venous: The inferior vena cava appears normal in size. There is an approximate 50% respiratory change in the inferior vena cava dimension. Contrast: Definity was used to optimize study. 3 mL of diluted Definity was utilized. Intravenous contrast was used to enhance endocardial border definition. Conclusions Mild concentric left ventricular hypertrophy is observed. The.basilar 2/3 of the inferior wall relatively hypokinetic, extends in to the posterior wall. Base of the septum relatively hypokinetic. The estimated ejection fraction is 50%. The right ventricular global systolic function is normal. The left atrium is mildly dilated. The right atrium is mildly dilated. The aortic valve leaflets are mildly thickened with normal function. There is mild to moderate mitral regurgitation, best seen in 2 and 3 chamber views. There is mitral annular calcification and mitral valve sclerosis. There is mild tricuspid regurgitation. There is evidence of mild pulmonary hypertension: 42 mmHg. Compared with prior echo of 08/17/14, area of hypokinesis unchanged, EF has im proved from 40/45%, prior MR was moderate, prior TR was trace, trace AI seen previously and PA pressure has improved from 63 mmHg. Measurements Name Value Normal Range RVIDd (AP) 2D 2.6 cm (0.9 - 2.6) RVDdMajor (2D) 4.1 cm (2.2 - 4.4) RAd ISD 4CH 5.3 cm (3.4 - 4.9) RA (A4C)W 4.6 cm (2.9 - 4.6) IVSd (2D) 1.2 cm (0.6 - 1) LVPWd (2D) 1.2 cm (0.6 - 1) LVIDd (2D) 3.9 cm (3.6 - 5.4) LVIDs (2D) 2.9 cm - LV FS (2D) 25 % (25 - 45) Aortic Annulus 1.7 cm (1.4 - 2.6) Ao root diameter (2D) 3.3 cm (2.1 - 3.5) Ascending Ao 2.9 cm (2.1 - 3.4) Aortic arch 2.3 cm (1.8 - 3.4) LA dimension (AP) 2D 4.2 cm (2.3 - 3.8) LAd ISD 4CH 5.7 cm (2.9 - 5.3) LA ISD 4CH W 5 cm (2.5 - 4.5) Name Value Normal Range LA ESV SP 4CH (A/L) 86 ml - LA ESV SP 2CH (A/L) 51 ml - LA ESV BP (A/L) 70 ml - LA ESV BP (A/L) index 38 ml/m2 - LA ESV SP 4CH (MOD) 78 ml - LA ESV SP 2CH (MOD) 49 ml - Name Value Normal Range MV E-wave Vmax 1.72 m/sec - MV deceleration time 169.6 msec - MV A-wave Vmax 0.61 m/sec - MV E:A ratio 2.8 ratio - LV septal e' Vmax 0.09 m/sec - LV lateral e' Vmax 0.11 m/sec - LV E:e' septal ratio 19.11 ratio - LV E:e' lateral ratio 15.64 ratio - Name Value Normal Range AV Vmax 1.6 m/sec - AV VTI 25.69 cm - AV peak gradient 9.58 mmHg - AV mean gradient 5 mmHg - LVOT Vmax 0.75 m/sec - LVOT VTI 14.33 cm - LVOT peak gradient 2.31 mmHg - LVOT mean gradient 1.21 mmHg - BRIGETTE Vmax 0.53 m/sec - Name Value Normal Range MV Vmax 2 m/sec - MV VTI 27.3 cm - MV peak gradient 15.9 mmHg - MV mean gradient 4.7 mmHg - MV PHT 42.3 msec - MR flow (PISA) 6.69 ml/sec - MR PISA radius 0.2 cm - MR alias Vmax 24.73 cm/sec - MVA (PHT) 5.19 cm2 - Name Value Normal Range TR Vmax 2.9 m/sec - TR peak gradient 34 mmHg - RAP 8 mmHg - RVSP 42 mmHg - IVC diameter 2.1 cm - Name Value Normal Range PV Vmax 1.04 m/sec - PV peak gradient 4.37 mmHg - VA end-diastolic Vmax 1.65 m/sec -
[2017-11-03] MEDS: Albuterol/Ipratropium NEB.SOL* Albuterol 2.5 MG/Ipratropium 0.5 MG 3 ML INH SCH ×2 (13:09→20:25)
[2017-11-03] MEDS ORDERED: Furosemide IV* 10 MG/ML 2 ML VIAL (20 MG) IV ONE (13:39)
[2017-11-03] MEDS: methylPREDNISolone SOD 40 MG* 1 ML VIAL IV SCH ×2 (14:36→21:43)
[2017-11-03] MEDS ORDERED: Warfarin TAB(*) 5 MG PO SCH (17:00)
[2017-11-04 05:52] LABS: Hematocrit 35 % (42-52); Hemoglobin 11.5 g/dl (14.0-18.0); Mean Corpuscular HGB Conc 33 g/dl (31-36); Mean Corpuscular Hemoglobin 32 pg (27-31); Mean Corpuscular Volume 96 fL (80-94); Mean Platelet Volume 8 um3 (7.4-10.4); Platelet Count 144 10^3/ul (150-450); Red Blood Count 3.66 10^6/ul (4.0-5.4); Red Cell Distribution Width 16 % (10.5-15)
[2017-11-04 06:06] LABS: INR 3.67 (0.77-1.02)
[2017-11-04] MEDS: Omeprazole CAP* 20 MG PO SCH (07:09)
[2017-11-04] MEDS: methylPREDNISolone SOD 40 MG* 1 ML VIAL IV SCH ×3 (07:09→22:18)
[2017-11-04] MEDS: Allopurinol TAB* 300 MG PO SCH (09:34)
[2017-11-04] MEDS: Atorvastatin* 40 MG TAB PO SCH (09:35)
[2017-11-04] MEDS: Aspirin EC Low Dose* 81 MG TAB.EC PO SCH (09:35)
[2017-11-04] MEDS: Citalopram TAB* 10 MG PO SCH (09:35)
[2017-11-04] MEDS: Ramipril CAP* 10 MG PO SCH ×2 (09:36→22:18)
[2017-11-04] MEDS: Metoprolol Succinate XL TAB* 50 MG PO SCH (09:36)
[2017-11-04] MEDS: glipiZIDE TAB.XL* 5 MG PO SCH (09:36)
[2017-11-04] MEDS: Furosemide TAB* 20 MG PO SCH (09:37)
[2017-11-04] MEDS: guaiFENesin ER TAB 600 MG PO SCH ×2 (09:37→22:18)
[2017-11-04] MEDS: Insulin LISPRO* 1 UNITS UNIT SUBCUT SCH ×3 (09:38→17:38)
[2017-11-04] MEDS: Insulin GLARGINE(*) 1 UNITS UNIT SUBCUT SCH (09:39)
[2017-11-04] MEDS: Azithromycin IV(*) 500 MG in NS 0.9% 250 ML* 250 ML IVPB SCH (11:39)
[2017-11-04] MEDS ORDERED: Insulin GLARGINE(*) 1 UNITS UNIT SUBCUT ONE (13:20)
--- NOTE | 2017-11-04 15:05 | PN ---
Subjective Date of Service: 11/04/17 Interval History: Was better this am, but then started walking and got "whezy "again. wheezing audible from distance , pt mildly tachypneic, but ambulating with no support Objective Active Medications: Hydrocodone Bitart/Acetaminophen ([place] 5-325 Tab*) 1 tab PO Q4H PRN PRN Reason: PAIN - BACK Al Hydrox/Mg Hydrox/Simethicone (Maalox Plus*) 30 ml PO Q6H PRN PRN Reason: INDIGESTION Albuterol (Ventolin 2.5 Mg/3 Ml Neb.Xena*) 2.5 mg INH Q2H PRN PRN Reason: SOB/WHEEZING Albuterol/Ipratropium (Duoneb (Albuterol 2.5 Mg/Ipratropium 0.5 Mg)) 1 neb INH Q4H PRN PRN Reason: SOB/WHEEZING Allopurinol (Zyloprim Tab*) 300 mg PO DAILY [facility] Last Admin: 11/04/17 09:34 Dose: 300 mg Aspirin (Aspirin Ec Low Dose*) 81 mg PO DAILY [facility] Last Admin: 11/04/17 09:35 Dose: 81 mg Atorvastatin Calcium (Lipitor*) 40 mg PO DAILY [facility] Last Admin: 11/04/17 09:35 Dose: 40 mg Citalopram Hydrobromide (Celexa Tab*) 10 mg PO DAILY [facility] Last Admin: 11/04/17 09:35 Dose: 10 mg Dextrose (D50w Syringe 50 Ml*) 12.5 gm IV PUSH .FOR FS < 60 - SS PRN PRN Reason: FS < 60 Docusate Sodium (Colace Cap*) 100 mg PO BID PRN PRN Reason: CONSTIPATION Glipizide (Glucotrol Xl*) 5 mg PO DAILY WITH MEAL [facility] Last Admin: 11/04/17 09:36 Dose: 5 mg Guaifenesin (Mucinex*) 600 mg PO BID [facility] Last Admin: 11/04/17 09:37 Dose: 600 mg Azithromycin 500 mg/ Sodium (Chloride) 250 mls @ 250 mls/hr IVPB Q24H [facility] Last Admin: 11/04/17 11:39 Dose: 250 mls/hr Insulin Glargine (Lantus(*)) 10 units SUBCUT Q24H [facility] Last Admin: 02/01/18 09:39 Dose: 10 units Insulin Human Lispro (Humalog*) 0 units SUBCUT AC [facility] PRN Reason: Protocol Methylprednisolone Sodium Succinate (Solu-Medrol 40 Mg) 40 mg IV Q8H [facility] Last Admin: 11/04/17 13:36 Dose: 40 mg Metoprolol Succinate (Toprol Xl Tab*) 50 mg PO DAILY [facility] Last Admin: 11/04/17 09:36 Dose: 50 mg Omeprazole (Prilosec Cap*) 20 mg PO 0600 [facility] Last Admin: 11/04/17 07:09 Dose: 20 mg Ondansetron HCl (Zofran Inj*) 4 mg IV Q4H PRN PRN Reason: NAUSEA/VOMITING Ramipril (Altace Cap*) 10 mg PO BID [facility] Last Admin: 11/04/17 09:36 Dose: 10 mg Senna (Senokot Tab*) 1 tab PO BID PRN PRN Reason: CONSTIPATION Oxygen Devices in Use Now: None Appearance: 87 yo M in nAD, aAOx3 Eyes: No Scleral Icterus, PERRLA Ears/Nose/Mouth/Throat: NL Teeth, Lips, Gums, Mucous Membranes Moist Neck: NL Appearance and Movements; NL JVP, Trachea Midline Respiratory: Symmetrical Chest Expansion and Respiratory Effort, - - diffuse wheezing b/l Cardiovascular: NL Sounds; No Murmurs; No JVD, RRR Abdominal: NL Sounds; No Tenderness; No Distention Lymphatic: No Cervical Adenopathy Extremities: No Clubbing, Cyanosis, - - trace ankle edema b/l Skin: No Rash or Ulcers, No Nodules or Sclerosis Neurological: Alert and Oriented x 3, NL Muscle Strength and Tone Result Diagrams: 11/04/17 05:44 11/04/17 05:44 Additional Lab and Data: Lab Results 11/02/17 11/02/17 11/02/17 Range/Units 20:49 20:49 20:49 WBC 8.6 (3.5-10.8) 10^3/ul RBC 4.01 (4.0-5.4) 10^6/ul Hgb 12.5 L (14.0-18.0) g/dl Hct 39 L (42-52) % MCV 97 H (80-94) fL MCH 31 (27-31) pg MCHC 32 (31-36) g/dl RDW 16 H (10.5-15) % Plt Count 143 L (150-450) 10^3/ul MPV 8 (7.4-10.4) um3 Neut % (Auto) 73.6 (38-83) % Lymph % (Auto) 11.9 L (25-47) % [place] % (Auto) 10.7 H (1-9) % Eos % (Auto) 3.4 (0-6) % Baso % (Auto) 0.4 (0-2) % Absolute Neuts (auto) 6.3 (1.5-7.7) 10^3/ul Absolute Lymphs (auto) 1.0 (1.0-4.8) 10^3/ul Absolute Monos (auto) 0.9 H (0-0.8) 10^3/ul Absolute Eos (auto) 0.3 (0-0.6) 10^3/ul Absolute Basos (auto) 0 (0-0.2) 10^3/ul Absolute Nucleated RBC 0 10^3/ul Nucleated RBC % 0.1 INR (Anticoag Therapy) (0.77-1.02) APTT (26.0-36.3) seconds Sodium 139 (133-145) mmol/L Potassium 4.4 (3.5-5.0) mmol/L Chloride 106 (101-111) mmol/L Carbon Dioxide 26 (22-32) mmol/L Anion Gap 7 (2-11) mmol/L BUN 37 H (6-24) mg/dL Creatinine 1.62 H (0.67-1.17) mg/dL Est GFR ( Amer) 51.9 (>60) Est GFR (Non-Af Amer) 40.3 (>60) BUN/Creatinine Ratio 22.8 H (8-20) Glucose 116 H (70-100) mg/dL Lactic Acid 1.0 (0.5-2.0) mmol/L Calcium 9.2 (8.6-10.3) mg/dL Total Bilirubin 0.60 (0.2-1.0) mg/dL AST 24 (13-39) U/L ALT 17 (7-52) U/L Alkaline Phosphatase 116 H (34-104) U/L Troponin I 0.03 (<0.04) ng/mL B-Natriuretic Peptide ( - 100) pg/mL Total Protein 7.0 (6.4-8.9) g/dL Albumin 3.8 (3.2-5.2) g/dL Globulin 3.2 (2-4) g/dL Albumin/Globulin Ratio 1.2 (1-3) Procalcitonin (<0.6) ng/mL Influenza A (Rapid) (Negative) Influenza B (Rapid) (Negative) 11/02/17 11/02/17 11/02/17 Range/Units 20:49 20:49 20:49 WBC (3.5-10.8) 10^3/ul RBC (4.0-5.4) 10^6/ul Hgb (14.0-18.0) g/dl Hct (42-52) % MCV (80-94) fL MCH (27-31) pg MCHC (31-36) g/dl RDW (10.5-15) % Plt Count (150-450) 10^3/ul MPV (7.4-10.4) um3 Neut % (Auto) (38-83) % Lymph % (Auto) (25-47) % [place] % (Auto) (1-9) % Eos % (Auto) (0-6) % Baso % (Auto) (0-2) % Absolute Neuts (auto) (1.5-7.7) 10^3/ul Absolute Lymphs (auto) (1.0-4.8) 10^3/ul Absolute Monos (auto) (0-0.8) 10^3/ul Absolute Eos (auto) (0-0.6) 10^3/ul Absolute Basos (auto) (0-0.2) 10^3/ul Absolute Nucleated RBC 10^3/ul Nucleated RBC % INR (Anticoag Therapy) 2.81 H (0.77-1.02) APTT 43.3 H (26.0-36.3) seconds Sodium (133-145) mmol/L Potassium (3.5-5.0) mmol/L Chloride (101-111) mmol/L Carbon Dioxide (22-32) mmol/L Anion Gap (2-11) mmol/L BUN (6-24) mg/dL Creatinine (0.67-1.17) mg/dL Est GFR ( Amer) (>60) Est GFR (Non-Af Amer) (>60) BUN/Creatinine Ratio (8-20) Glucose (70-100) mg/dL Lactic Acid (0.5-2.0) mmol/L Calcium (8.6-10.3) mg/dL Total Bilirubin (0.2-1.0) mg/dL AST (13-39) U/L ALT (7-52) U/L Alkaline Phosphatase (34-104) U/L Troponin I (<0.04) ng/mL B-Natriuretic Peptide 607 H ( - 100) pg/mL Total Protein (6.4-8.9) g/dL Albumin (3.2-5.2) g/dL Globulin (2-4) g/dL Albumin/Globulin Ratio (1-3) Procalcitonin < 0.1 (<0.6) ng/mL Influenza A (Rapid) (Negative) Influenza B (Rapid) (Negative) 11/02/17 Range/Units 22:46 WBC (3.5-10.8) 10^3/ul RBC (4.0-5.4) 10^6/ul Hgb (14.0-18.0) g/dl Hct (42-52) % MCV (80-94) fL MCH (27-31) pg MCHC (31-36) g/dl RDW (10.5-15) % Plt Count (150-450) 10^3/ul MPV (7.4-10.4) um3 Neut % (Auto) (38-83) % Lymph % (Auto) (25-47) % [place] % (Auto) (1-9) % Eos % (Auto) (0-6) % Baso % (Auto) (0-2) % Absolute Neuts (auto) (1.5-7.7) 10^3/ul Absolute Lymphs (auto) (1.0-4.8) 10^3/ul Absolute Monos (auto) (0-0.8) 10^3/ul Absolute Eos (auto) (0-0.6) 10^3/ul Absolute Basos (auto) (0-0.2) 10^3/ul Absolute Nucleated RBC 10^3/ul Nucleated RBC % INR (Anticoag Therapy) (0.77-1.02) APTT (26.0-36.3) seconds Sodium (133-145) mmol/L Potassium (3.5-5.0) mmol/L Chloride (101-111) mmol/L Carbon Dioxide (22-32) mmol/L Anion Gap (2-11) mmol/L BUN (6-24) mg/dL Creatinine (0.67-1.17) mg/dL Est GFR ( Amer) (>60) Est GFR (Non-Af Amer) (>60) BUN/Creatinine Ratio (8-20) Glucose (70-100) mg/dL Lactic Acid (0.5-2.0) mmol/L Calcium (8.6-10.3) mg/dL Total Bilirubin (0.2-1.0) mg/dL AST (13-39) U/L ALT (7-52) U/L Alkaline Phosphatase (34-104) U/L Troponin I (<0.04) ng/mL B-Natriuretic Peptide ( - 100) pg/mL Total Protein (6.4-8.9) g/dL Albumin (3.2-5.2) g/dL Globulin (2-4) g/dL Albumin/Globulin Ratio (1-3) Procalcitonin (<0.6) ng/mL Influenza A (Rapid) Negative (Negative) Influenza B (Rapid) Negative (Negative) Assess/Plan/Problems-Billing Assessment: 87 yo m with h/o CKD3, DVT on Coumadin, DM, CABG presents with viral syndrome and CHF - Patient Problems (1) Bronchitis Comment: acute, with bronchospasm whic continues to be severe Cont Solu Medrol cont Solisithro, pepe luciano (2) Acute on chronic diastolic CHF (congestive heart failure) Comment: creat is higher today. Pt appears euvolemic. Will hold lasix cont daily weights (3) CKD (chronic kidney disease) stage 3, GFR 30-59 ml/min Comment: due to DM2 Creat with slight worsening today (4) Diabetes Comment: uncontrolled due to steroid use cont ISS, glipizide started Lantus today (5) DVT prophylaxis Comment: INR>3, holding coumadin Status and Disposition: OBV switched to inpatient
[2017-11-04] MEDS ORDERED: Warfarin TAB(*) 2.5 MG PO SCH (17:00)
[2017-11-05] MEDS: methylPREDNISolone SOD 40 MG* 1 ML VIAL IV SCH ×2 (05:53→18:13)
[2017-11-05] MEDS: Omeprazole CAP* 20 MG PO SCH (05:55)
[2017-11-05 08:14] LABS: ABS Basophils 0 10^3/ul (0-0.2); ABS Eosinophils 0 10^3/ul (0-0.6); ABS Lymphocytes 0.9 10^3/ul (1.0-4.8); ABS Monocytes 0.4 10^3/ul (0-0.8); ABS Nucleated RBC 0 10^3/ul; Eosinophil % 0 % (0-6); Hematocrit 36 % (42-52); Mean Corpuscular HGB Conc 33 g/dl (31-36); Mean Corpuscular Hemoglobin 32 pg (27-31); Mean Corpuscular Volume 95 fL (80-94); Mean Platelet Volume 9 um3 (7.4-10.4); Nucleated Red Blood Cells % 0.1; Platelet Count 155 10^3/ul (150-450); Red Cell Distribution Width 15 % (10.5-15); White Blood Count 11.4 10^3/ul (3.5-10.8)
[2017-11-05 08:27] LABS: EGFR Non-African American 37.9 (>60)
[2017-11-05] MEDS: Insulin GLARGINE(*) 1 UNITS UNIT SUBCUT SCH (08:58)
[2017-11-05] MEDS: Insulin LISPRO* 1 UNITS UNIT SUBCUT SCH ×3 (08:58→17:46)
[2017-11-05] MEDS: Atorvastatin* 40 MG TAB PO SCH (08:59)
[2017-11-05] MEDS: Aspirin EC Low Dose* 81 MG TAB.EC PO SCH (08:59)
[2017-11-05] MEDS: Metoprolol Succinate XL TAB* 50 MG PO SCH (08:59)
[2017-11-05] MEDS: Allopurinol TAB* 300 MG PO SCH (08:59)
[2017-11-05] MEDS: guaiFENesin ER TAB 600 MG PO SCH ×2 (09:00→21:40)
[2017-11-05] MEDS: Ramipril CAP* 10 MG PO SCH ×2 (09:00→21:40)
[2017-11-05] MEDS: glipiZIDE TAB.XL* 5 MG PO SCH (09:00)
[2017-11-05] MEDS: Citalopram TAB* 10 MG PO SCH (09:00)
[2017-11-05] MEDS: Azithromycin IV(*) 500 MG in NS 0.9% 250 ML* 250 ML IVPB SCH (11:05)
--- NOTE | 2017-11-05 15:20 | PN ---
Subjective Date of Service: 11/05/17 Interval History: pt feels better, still wheezing, but much improved Objective Active Medications: Hydrocodone Bitart/Acetaminophen ([place] 5-325 Tab*) 1 tab PO Q4H PRN PRN Reason: PAIN - BACK Al Hydrox/Mg Hydrox/Simethicone (Maalox Plus*) 30 ml PO Q6H PRN PRN Reason: INDIGESTION Albuterol (Ventolin 2.5 Mg/3 Ml Neb.Xena*) 2.5 mg INH Q2H PRN PRN Reason: SOB/WHEEZING Albuterol/Ipratropium (Duoneb (Albuterol 2.5 Mg/Ipratropium 0.5 Mg)) 1 neb INH Q4H PRN PRN Reason: SOB/WHEEZING Allopurinol (Zyloprim Tab*) 300 mg PO DAILY [facility] Last Admin: 11/05/17 08:59 Dose: 300 mg Aspirin (Aspirin Ec Low Dose*) 81 mg PO DAILY [facility] Last Admin: 11/05/17 08:59 Dose: 81 mg Atorvastatin Calcium (Lipitor*) 40 mg PO DAILY [facility] Last Admin: 11/05/17 08:59 Dose: 40 mg Citalopram Hydrobromide (Celexa Tab*) 10 mg PO DAILY [facility] Last Admin: 11/05/17 09:00 Dose: 10 mg Dextrose (D50w Syringe 50 Ml*) 12.5 gm IV PUSH .FOR FS < 60 - SS PRN PRN Reason: FS < 60 Docusate Sodium (Colace Cap*) 100 mg PO BID PRN PRN Reason: CONSTIPATION Furosemide (Lasix Tab*) 20 mg PO EVERY OTHER DAY [facility] Glipizide (Glucotrol Xl*) 5 mg PO DAILY WITH MEAL [facility] Last Admin: 11/05/17 09:00 Dose: 5 mg Guaifenesin (Mucinex*) 600 mg PO BID [facility] Last Admin: 11/05/17 09:00 Dose: 600 mg Azithromycin 500 mg/ Sodium (Chloride) 250 mls @ 250 mls/hr IVPB Q24H [facility] Last Admin: 11/05/17 11:05 Dose: 250 mls/hr Insulin Glargine (Lantus(*)) 10 units SUBCUT Q24H [facility] Last Admin: 11/05/17 08:58 Dose: 10 units Insulin Human Lispro (Humalog*) 0 units SUBCUT AC [facility] PRN Reason: Protocol Last Admin: 11/05/17 12:00 Dose: 8 unit Methylprednisolone Sodium Succinate (Solu-Medrol 40 Mg) 40 mg IV Q12HR@0600, 1800 [facility] Metoprolol Succinate (Toprol Xl Tab*) 50 mg PO DAILY [facility] Last Admin: 11/05/17 08:59 Dose: 50 mg Omeprazole (Prilosec Cap*) 20 mg PO 0600 [facility] Last Admin: 11/05/17 05:55 Dose: 20 mg Ondansetron HCl (Zofran Inj*) 4 mg IV Q4H PRN PRN Reason: NAUSEA/VOMITING Ramipril (Altace Cap*) 10 mg PO BID [facility] Last Admin: 11/05/17 09:00 Dose: 10 mg Senna (Senokot Tab*) 1 tab PO BID PRN PRN Reason: CONSTIPATION Warfarin Sodium (Coumadin Tab(*)) 2.5 mg PO DAILY@1700 [facility] PRN Reason: Protocol Vital Signs - 8 hr 11/05/17 11/05/17 11/05/17 07:23 08:00 11:12 Temperature 98.1 F 97.3 F Pulse Rate 84 82 Respiratory 16 16 20 Rate Blood Pressure 121/59 147/68 (mmHg) O2 Sat by Pulse 97 100 Oximetry Oxygen Devices in Use Now: None Appearance: 87 yo M in nAD, AAOx3, poor historian Eyes: No Scleral Icterus, PERRLA Ears/Nose/Mouth/Throat: NL Teeth, Lips, Gums, Mucous Membranes Moist Neck: NL Appearance and Movements; NL JVP, Trachea Midline Respiratory: Symmetrical Chest Expansion and Respiratory Effort, - - diffuse wheezes b/l-improved Cardiovascular: NL Sounds; No Murmurs; No JVD Abdominal: NL Sounds; No Tenderness; No Distention Lymphatic: No Cervical Adenopathy Extremities: No Clubbing, Cyanosis, - - trace pedal edema b/l Skin: No Rash or Ulcers, No Nodules or Sclerosis Neurological: Alert and Oriented x 3, NL Muscle Strength and Tone Result Diagrams: 11/05/17 07:51 11/05/17 07:51 Additional Lab and Data: Lab Results 11/02/17 11/02/17 11/02/17 Range/Units 20:49 20:49 20:49 WBC 8.6 (3.5-10.8) 10^3/ul RBC 4.01 (4.0-5.4) 10^6/ul Hgb 12.5 L (14.0-18.0) g/dl Hct 39 L (42-52) % MCV 97 H (80-94) fL MCH 31 (27-31) pg MCHC 32 (31-36) g/dl RDW 16 H (10.5-15) % Plt Count 143 L (150-450) 10^3/ul MPV 8 (7.4-10.4) um3 Neut % (Auto) 73.6 (38-83) % Lymph % (Auto) 11.9 L (25-47) % [place] % (Auto) 10.7 H (1-9) % Eos % (Auto) 3.4 (0-6) % Baso % (Auto) 0.4 (0-2) % Absolute Neuts (auto) 6.3 (1.5-7.7) 10^3/ul Absolute Lymphs (auto) 1.0 (1.0-4.8) 10^3/ul Absolute Monos (auto) 0.9 H (0-0.8) 10^3/ul Absolute Eos (auto) 0.3 (0-0.6) 10^3/ul Absolute Basos (auto) 0 (0-0.2) 10^3/ul Absolute Nucleated RBC 0 10^3/ul Nucleated RBC % 0.1 INR (Anticoag Therapy) (0.77-1.02) APTT (26.0-36.3) seconds Sodium 139 (133-145) mmol/L Potassium 4.4 (3.5-5.0) mmol/L Chloride 106 (101-111) mmol/L Carbon Dioxide 26 (22-32) mmol/L Anion Gap 7 (2-11) mmol/L BUN 37 H (6-24) mg/dL Creatinine 1.62 H (0.67-1.17) mg/dL Est GFR ( Amer) 51.9 (>60) Est GFR (Non-Af Amer) 40.3 (>60) BUN/Creatinine Ratio 22.8 H (8-20) Glucose 116 H (70-100) mg/dL Lactic Acid 1.0 (0.5-2.0) mmol/L Calcium 9.2 (8.6-10.3) mg/dL Total Bilirubin 0.60 (0.2-1.0) mg/dL AST 24 (13-39) U/L ALT 17 (7-52) U/L Alkaline Phosphatase 116 H (34-104) U/L Troponin I 0.03 (<0.04) ng/mL B-Natriuretic Peptide ( - 100) pg/mL Total Protein 7.0 (6.4-8.9) g/dL Albumin 3.8 (3.2-5.2) g/dL Globulin 3.2 (2-4) g/dL Albumin/Globulin Ratio 1.2 (1-3) Procalcitonin (<0.6) ng/mL Influenza A (Rapid) (Negative) Influenza B (Rapid) (Negative) 11/02/17 11/02/17 11/02/17 Range/Units 20:49 20:49 20:49 WBC (3.5-10.8) 10^3/ul RBC (4.0-5.4) 10^6/ul Hgb (14.0-18.0) g/dl Hct (42-52) % MCV (80-94) fL MCH (27-31) pg MCHC (31-36) g/dl RDW (10.5-15) % Plt Count (150-450) 10^3/ul MPV (7.4-10.4) um3 Neut % (Auto) (38-83) % Lymph % (Auto) (25-47) % [place] % (Auto) (1-9) % Eos % (Auto) (0-6) % Baso % (Auto) (0-2) % Absolute Neuts (auto) (1.5-7.7) 10^3/ul Absolute Lymphs (auto) (1.0-4.8) 10^3/ul Absolute Monos (auto) (0-0.8) 10^3/ul Absolute Eos (auto) (0-0.6) 10^3/ul Absolute Basos (auto) (0-0.2) 10^3/ul Absolute Nucleated RBC 10^3/ul Nucleated RBC % INR (Anticoag Therapy) 2.81 H (0.77-1.02) APTT 43.3 H (26.0-36.3) seconds Sodium (133-145) mmol/L Potassium (3.5-5.0) mmol/L Chloride (101-111) mmol/L Carbon Dioxide (22-32) mmol/L Anion Gap (2-11) mmol/L BUN (6-24) mg/dL Creatinine (0.67-1.17) mg/dL Est GFR ( Amer) (>60) Est GFR (Non-Af Amer) (>60) BUN/Creatinine Ratio (8-20) Glucose (70-100) mg/dL Lactic Acid (0.5-2.0) mmol/L Calcium (8.6-10.3) mg/dL Total Bilirubin (0.2-1.0) mg/dL AST (13-39) U/L ALT (7-52) U/L Alkaline Phosphatase (34-104) U/L Troponin I (<0.04) ng/mL B-Natriuretic Peptide 607 H ( - 100) pg/mL Total Protein (6.4-8.9) g/dL Albumin (3.2-5.2) g/dL Globulin (2-4) g/dL Albumin/Globulin Ratio (1-3) Procalcitonin < 0.1 (<0.6) ng/mL Influenza A (Rapid) (Negative) Influenza B (Rapid) (Negative) 11/02/17 Range/Units 22:46 WBC (3.5-10.8) 10^3/ul RBC (4.0-5.4) 10^6/ul Hgb (14.0-18.0) g/dl Hct (42-52) % MCV (80-94) fL MCH (27-31) pg MCHC (31-36) g/dl RDW (10.5-15) % Plt Count (150-450) 10^3/ul MPV (7.4-10.4) um3 Neut % (Auto) (38-83) % Lymph % (Auto) (25-47) % [place] % (Auto) (1-9) % Eos % (Auto) (0-6) % Baso % (Auto) (0-2) % Absolute Neuts (auto) (1.5-7.7) 10^3/ul Absolute Lymphs (auto) (1.0-4.8) 10^3/ul Absolute Monos (auto) (0-0.8) 10^3/ul Absolute Eos (auto) (0-0.6) 10^3/ul Absolute Basos (auto) (0-0.2) 10^3/ul Absolute Nucleated RBC 10^3/ul Nucleated RBC % INR (Anticoag Therapy) (0.77-1.02) APTT (26.0-36.3) seconds Sodium (133-145) mmol/L Potassium (3.5-5.0) mmol/L Chloride (101-111) mmol/L Carbon Dioxide (22-32) mmol/L Anion Gap (2-11) mmol/L BUN (6-24) mg/dL Creatinine (0.67-1.17) mg/dL Est GFR ( Amer) (>60) Est GFR (Non-Af Amer) (>60) BUN/Creatinine Ratio (8-20) Glucose (70-100) mg/dL Lactic Acid (0.5-2.0) mmol/L Calcium (8.6-10.3) mg/dL Total Bilirubin (0.2-1.0) mg/dL AST (13-39) U/L ALT (7-52) U/L Alkaline Phosphatase (34-104) U/L Troponin I (<0.04) ng/mL B-Natriuretic Peptide ( - 100) pg/mL Total Protein (6.4-8.9) g/dL Albumin (3.2-5.2) g/dL Globulin (2-4) g/dL Albumin/Globulin Ratio (1-3) Procalcitonin (<0.6) ng/mL Influenza A (Rapid) Negative (Negative) Influenza B (Rapid) Negative (Negative) Assess/Plan/Problems-Billing Assessment: 87 yo m with h/o CKD3, DVT on Coumadin, DM, CABG presents with viral syndrome and CHF - Patient Problems (1) Bronchitis Comment: acute, with bronchospasm whic continues to be significant , but with marked improvement Cont Solu Medrol-lower the dose interval cont Solisithpepe leebs (2) Acute on chronic diastolic CHF (congestive heart failure) Comment: Pt appears euvolemic. Will restart at home lasix tomorrow cont daily weights (3) CKD (chronic kidney disease) stage 3, GFR 30-59 ml/min Comment: due to DM2 Creat at baseline (4) Diabetes Comment: uncontrolled due to steroid use cont ISS, glipizide-will double the dose when on steroids started Lantus on 11/04/17 (5) DVT prophylaxis Comment: coumadin restarted on 11/05/17 Status and Disposition: inpatient
[2017-11-05] MEDS ORDERED: glipiZIDE TAB.XL* 5 MG PO ONE (15:21)
[2017-11-05] MEDS ORDERED: Warfarin TAB(*) 2.5 MG PO SCH (17:00)
[2017-11-06] MEDS: methylPREDNISolone SOD 40 MG* 1 ML VIAL IV SCH (05:52)
[2017-11-06] MEDS: Omeprazole CAP* 20 MG PO SCH (05:52)
[2017-11-06] MEDS: glipiZIDE TAB.XL* 5 MG PO SCH ×2 (08:45→08:51)
[2017-11-06] MEDS: guaiFENesin ER TAB 600 MG PO SCH (08:50)
[2017-11-06] MEDS: Citalopram TAB* 10 MG PO SCH (08:51)
[2017-11-06] MEDS: Atorvastatin* 40 MG TAB PO SCH (08:51)
[2017-11-06] MEDS: Ramipril CAP* 10 MG PO SCH (08:51)
[2017-11-06] MEDS: Metoprolol Succinate XL TAB* 50 MG PO SCH (08:51)
[2017-11-06] MEDS: Aspirin EC Low Dose* 81 MG TAB.EC PO SCH (08:51)
[2017-11-06] MEDS: Allopurinol TAB* 300 MG PO SCH (08:51)
[2017-11-06] MEDS: Insulin LISPRO* 1 UNITS UNIT SUBCUT SCH ×2 (08:53→12:30)
[2017-11-06] MEDS: Insulin GLARGINE(*) 1 UNITS UNIT SUBCUT SCH (08:53)
[2017-11-06] MEDS ORDERED: predniSONE TAB* 20 MG PO SCH (09:00)
[2017-11-06] MEDS ORDERED: Furosemide TAB* 20 MG PO SCH (09:00)
[2017-11-06] MEDS: Azithromycin IV(*) 500 MG in NS 0.9% 250 ML* 250 ML IVPB SCH (10:48)
[2017-11-06 11:20] VITALS: BP 128/64
[2017-11-06 11:45] LABS: INR 2.19 (0.77-1.02)
--- NOTE | 2017-11-07 09:40 | DS ---
CC: Dr. Reynoso * DISCHARGE SUMMARY: DATE OF ADMISSION: 11/03/17 DATE OF DISCHARGE: 11/06/17 PRIMARY CARE PROVIDER: Dr. Reynoso. DISCHARGE DIAGNOSES: 1. Severe acute spastic bronchitis, suspect viral. 2. Exacerbation of chronic diastolic congestive heart failure. SECONDARY DIAGNOSES: 1. History of chronic diastolic congestive heart failure. 2. History of deep venous thrombosis, on penitentiary anticoagulation. 3. Macular degeneration. 4. Chronic kidney disease, stage 3. 5. Coronary artery disease. 6. History of spinal stenosis. 7. History of reactive airway disease. 8. Diabetes type 2. 9. Hyperlipidemia. 10. Nephrolithiasis. 11. Hypertension. 12. History of prostate cancer. MEDICATIONS AT DISCHARGE: Include: 1. Prednisone taper, 60 mg daily for 2 days, then 40 mg daily for 2 days, then 20 mg daily for 2 days, then 10 mg daily for 2 days, then stop. 2. Azithromycin 250 mg daily for 2 days total. 3. DuoNeb nebulizers every 4 hours p.r.n. 4. Albuterol inhaler 1 puff every 4 hours p.r.n. The patient was instructed not to use an inhaler when he is using the nebulizer at the same time. 5. Allopurinol 300 mg daily. 6. Aspirin 81 mg daily. 7. Atorvastatin 40 mg daily. 8. Celexa 10 mg daily. 9. Furosemide 20 mg every other day. 10. Glipizide XL 5 mg daily. The patient was instructed to take two tablets for the next 4 days when he still is on the prednisone taper and then go back to 5 mg daily. 11. Mucinex ER 600 mg b.i.d. for a total of 10 days. 12. Hydrocodone/acetaminophen 1 tablet every 4 hours p.r.n. 13. Metoprolol succinate 50 mg daily. 14. Nitroglycerin sublingual on a p.r.n. basis as previously taken. 15. Ramipril 10 mg daily. 16. Zantac 300 mg at bedtime. 17. Coumadin 2.5 mg, to be started on 11/08/17 after INR is drawn on the same day. LABORATORY DATA DURING THE HOSPITAL STAY: Included: INR on 11/04/17 was 3.6. The patient's INR had been supratherapeutic throughout his hospital stay ranging from 2.8 to 3.6. He got one dose of Coumadin at 2.5 mg on the night of 11/05/17. Today's INR is still pending. On 11/05/17, sodium of 137, potassium of 4.6, chloride 102, carbon dioxide 27, BUN 64, creatinine 1.71. On 11/05/17, white blood cell count of 11.4, hemoglobin 12.0, hematocrit 36, and platelets of 155. Transthoracic echocardiogram obtained on 11/03/17 showed focal wall motion abnormality, basilar two-third of the inferior wall relatively hypokinetic. The estimated EF of 50% to 55%. The patient was noted to have 50% respiratory change in the inferior vena cava dimension. There was moderate mitral regurgitation and evidence of pulmonary hypertension at 42 mmHg. Comparing with the echo from 2013, the area of hypokinesis was unchanged, but the EF is improved currently. The patient's portable chest x-ray at admission, on 11/03/17, showed "small left pleural effusion." The patient's rapid flu test was negative. Blood cultures were negative. HOSPITALIZATION COURSE: Dioni Silverio is an 87-year-old male who presented to the hospital on 11/03/17 in severe bronchospasm. Initially it was thought to be related to a combination of bronchitis and congestive heart failure. The patient was diuresed for a day, but his creatinine worsened and his echocardiogram was not suggestive of CHF. At that point it was concluded that the patient likely has symptoms of severe spastic bronchitis. He was wheezing severely to the point that it was audible by the entry to the patient's room. He was placed on Solu-Medrol treatment and scheduled nebulizer treatments. He never became hypoxic. By the time of discharge, he is still wheezing, but that has markedly improved. He is ambulating down the hallways with some exertional wheezing. He is going to be arranged for nebulizer machine and DuoNeb treatments to be delivered to home. He was placed on double dose of glipizide when he gets hyperglycemic, more so from the prednisone, and then he can go back to his regular dose of glipizide. He needs 2 more dose of his azithromycin that he is going to finish a five-day course of azithromycin at home, although the suspicion is that the bronchitis was likely viral. His Lasix dosage is going to be unchanged at discharge. PHYSICAL EXAMINATION: At the time of discharge, blood pressure of 120/50, heart rate of 53 and regular, respiratory rate 16, oxygen saturation 98% on room air, and temperature 97.8 General: This is a very pleasant 87-year-old male, who is in no acute distress. The patient is alert and oriented x2, rather forgetful. HEENT: Head: Atraumatic, normocephalic. Eyes: Pupils are equal and reactive to light and accommodation. Oropharynx clear. Mucosa moist. Neck: Supple. No JVD. No bruits bilaterally. Cardiovascular: Regular rate and rhythm. No murmurs. Respiratory: Diffuse wheezes in bilateral lower and mid lungs. Abdomen: Soft, nontender. Bowel sounds present in all 4 quadrants. Extremities: There is +1 bilateral pitting pedal edema. Pulses +2 bilaterally. There is no clubbing or cyanosis. Neuro Evaluation: Speech clear. Cranial nerves II through XII grossly intact. Motor strength is 5/5 bilaterally. FOLLOWUP: Upon discharge, the patient is recommended to follow up with Dr. Reynoso in approximately 4 to 7 days. Please note that this is a short summary of the patient's hospitalization. Please refer to further medical records for details. TIME SPENT: Approximately 35 minutes were spent on the patient's discharge. [id number]/[facility] #: [id number]
== END 2017-11-06 13:10 | disposition home or self-care (01) | DRG 202 ==
LOC: ED 18:08 → MED 11-03 00:18 → OBSVTOIN 11-04 10:00
PROVIDERS: ADMIT Pediatrics; ATTEND Internal Medicine
DX: J20.8 Acute bronchitis due to other specified organisms (principal); I50.33 Acute on chronic diastolic (congestive) heart failure; E11.22 Type 2 diabetes mellitus with diabetic chronic kidney disease; E11.65 Type 2 diabetes mellitus with hyperglycemia; I13.0 Hypertensive heart and chronic kidney disease with heart failure and stage 1 through stage 4 chronic kidney disease, or unspecified chronic kidney disease; I27.20 Pulmonary hypertension, unspecified; I34.0 Nonrheumatic mitral (valve) insufficiency; N18.3 Chronic kidney disease, stage 3 (moderate); I25.10 Atherosclerotic heart disease of native coronary artery without angina pectoris; M47.9 Spondylosis, unspecified; K21.9 Gastro-esophageal reflux disease without esophagitis; H35.30 Unspecified macular degeneration; M48.00 Spinal stenosis, site unspecified; E78.5 Hyperlipidemia, unspecified; Z66 Do not resuscitate; J45.909 Unspecified asthma, uncomplicated; G89.29 Other chronic pain; T38.0X5A Adverse effect of glucocorticoids and synthetic analogues, initial encounter; Y92.239 Unspecified place in hospital as the place of occurrence of the external cause; M54.9 Dorsalgia, unspecified; Z88.0 Allergy status to penicillin; Z88.8 Allergy status to other drugs, medicaments and biological substances; Z85.46 Personal history of malignant neoplasm of prostate; Z92.3 Personal history of irradiation; Z98.61 Coronary angioplasty status; Z86.19 Personal history of other infectious and parasitic diseases; Z82.61 Family history of arthritis; Z86.010 Personal history of colon polyps; Z87.442 Personal history of urinary calculi; Z95.1 Presence of aortocoronary bypass graft; Z86.718 Personal history of other venous thrombosis and embolism; Z79.84 Long term (current) use of oral hypoglycemic drugs; Z79.82 Long term (current) use of aspirin
CPT/HCPCS: 36415; 71046; 80048; 80053; 82947; 83605; 83880; 84145; 84484; 85025; 85027; 85610; 85730; 87040; 87502; 93005; 93306; 94640; 99285; A9270-GY; G0378; J0456; J0696; J1940; J2920; J2930; J7512